=== PATIENT | female | born 1965 | race Caucasian/White ===

== ENCOUNTER → 2017-11-15 | Outpatient (CLI) | payer OTHER ==
[~2017-11-15] MED LIST: ADVIN25/60 INH; ALBU1AER9 INH; CHOL100010 PO; CITA10TA8 PO; IBUP-1450 PO; LVQ750 PO; MULT-884; OMEG10007 PO; PANT40TA PO; PREDNISONE TAPER PO; ROSU20TA PO; diflucan PO
== END | disposition home or self-care (01) ==
LOC: C.LAB1850 15:14
PROVIDERS: ATTEND Obstetrics & Gynecology
DX: Z20.2 Contact with and (suspected) exposure to infections with a predominantly sexual mode of transmission (principal)

== ENCOUNTER → 2017-11-15 | Outpatient (CLI) | payer OTHER | END | disposition home or self-care (01) | LOC: C.PAPS 08:29 | PROVIDERS: ATTEND Obstetrics & Gynecology | DX: Z12.4 Encounter for screening for malignant neoplasm of cervix (principal) ==

== ENCOUNTER → 2017-11-15 | Outpatient (CLI) | payer OTHER ==
--- NOTE | 2017-11-17 07:48 | MAMMOGRAPHY REPORT ---
BILATERAL DIGITAL SCREENING MAMMOGRAM TOMOSYNTHESIS WITH CAD: 11/15/2017 CLINICAL HISTORY: Routine screening. Patient has no complaints. TECHNIQUE: Breast tomosynthesis in addition to standard 2D mammography was performed. Current study was also evaluated with a Computer Aided Detection (CAD) system. COMPARISON: Comparison is made to exams dated: 07/23/2015 mammogram, 04/09/2011 mammogram, 07/21/2009 mammogram - [facility], 11/01/2007, 07/15/2009 mammogram, and 07/21/2009 ultrasound - [facility]. BREAST COMPOSITION: There are scattered areas of fibroglandular density in both breasts. FINDINGS: There is stable asymmetry in the right breast. No suspicious mass, architectural distortio n or cluster of microcalcifications is seen. IMPRESSION: ACR BI-RADS CATEGORY 1: NEGATIVE There is no mammographic evidence of malignancy. A 1 year screening mammogram is recommended. The pa tient will receive written notification of the results. Approximately 10% of breast cancers are not detected with mammography. A negative mammographic report should not delay biopsy if a clinically suggestive mass is present. Aura Aguilar M.D. ay/:11/15/2017 15:16:38 Corporate Consultant: Kacey CACERES([place])([place]), [facility] letter sent: Normal 1/2 BI-RADS Code: ACR BI-RADS Category 1: Negative
== END | disposition home or self-care (01) ==
LOC: C.MAMM 14:01
PROVIDERS: ATTEND Obstetrics & Gynecology
DX: Z12.31 Encounter for screening mammogram for malignant neoplasm of breast (principal)

== ENCOUNTER 2020-09-26 05:44 | Observation (INO) ==
[2020-09-26] MEDS ORDERED: ALBUT/IPRATROP 3MG/0.5MG NEB 3 ML VIAL NEB STA (06:45)
[2020-09-26] MEDS ORDERED: DEXAMETHASONE SOD INJ 10 MG/ML VIAL IV ONE (06:45)
[2020-09-26] MEDS ORDERED: guaiFENesin 600 MG TABCR PO STA (06:45)
[2020-09-26] MEDS ORDERED: ACETAMINOPHEN 1,000 MG/100 ML VIAL IV STA (06:46)
[2020-09-26 06:57] LABS: Basophils # (auto) 0.02 K/uL (0-0.2); Basophils % (auto) 0.3 %; Hematocrit (blood only) 40.8 % (37-47); Hemoglobin 13.6 g/dL (12.0-16.0); Immature Granulocytes # (auto) 0.02 K/uL (0.00-0.02); Immature Granulocytes % (auto) 0.3 %; Lymphocytes # (auto) 0.62 K/uL (1.2-3.4); Lymphocytes % (auto) 9.2 %; Mean Corpuscular Hemoglobin 30.2 pg (25-34); Mean Corpuscular Hgb Conc 33.3 g/dL (32-36); Mean Corpuscular Volume 90.5 fL (80-100); Monocytes # (auto) 0.33 K/uL (0.11-0.59); Monocytes % (auto) 4.9 %; Neutrophils # (auto) 5.78 K/uL (1.4-6.5); Neutrophils % (auto) 85.3 %; Platelet Count 275 K/uL (130-400); RDW Coefficient of Variation 13.6 % (11.5-14.5); RDW Standard Deviation 45.4 fL (36.4-46.3); Red Blood Count 4.51 M/uL (4.2-5.4); White Blood Count 6.77 K/uL (4.8-10.8)
[2020-09-26] MEDS ORDERED: ONDANSETRON INJ 2 MG/ML 2 ML VIAL ONE (06:58)
[2020-09-26] MEDS ORDERED: FAMOTIDINE 20MG/5ML IV PUSH IV ONE (06:59)
--- NOTE | 2020-09-26 07:02 | XRay Report ---
XR chest 1V portable CLINICAL HISTORY: shortness of breath, covid COMPARISON STUDY: Chest radiograph and chest CT September 20, 2020. FINDINGS: Lung volumes are diminished. There is no pneumothorax or pleural effusion. Moderate left ba silar opacity is increased. Right basilar opacity has slightly improved. Cardiomediastinal silhouette is stable. There is no evidence for pulmonary edema. IMPRESSION: 1. Increase in left basilar opacity consistent with an infectious process. 2. Slight improvement in right basilar opacity. 3. Low lung volumes. ACT 112: Negative or not required by law. Electronically signed by: Arnie Nash M.D. 09/26/2020 7:01 AM
[2020-09-26 07:12] LABS: Alanine Aminotransferase 28 U/L (12-78); Albumin Level 2.8 gm/dl (3.4-5.0); Aspartate Aminotransferase 16 U/L (15-37); BUN Creatinine Ratio 21.9 (10-20); Bilirubin Direct 0.1 mg/dl (0-0.2); Blood Urea Nitrogen 20 mg/dl (7-18); Calcium 9.4 mg/dl (8.5-10.1); Carbon Dioxide 22 mmol/L (21-32); Chloride 104 mmol/L (98-107); Creatinine Clr Calc Pharmacy 73.6 ml/min; Est GFR (Non-African American) 72.5; Glucose 110 mg/dl (70-99); Lipase 49 U/L (73-393); Magnesium 1.8 mg/dl (1.8-2.4); Phosphorus 2.5 mg/dl (2.5-4.9); Potassium 3.6 mmol/L (3.5-5.1); Sodium 137 mmol/L (136-145)
[2020-09-26 07:15] LABS: Alkaline Phosphatase 68 U/L (45-117); Bilirubin,Total 0.5 mg/dl (0.2-1); Troponin I < 0.015 ng/ml (0-0.045)
[2020-09-26] MEDS ORDERED: FAMOTIDINE 20MG IV PUSH 20 MG/5 ML SYR IV STA (07:46)
[2020-09-26] MEDS ORDERED: ONDANSETRON INJ 2 MG/ML 2 ML VIAL IV STA (07:46)
[2020-09-26] MEDS ORDERED: SODIUM CHLORIDE 0.9% 1000ML 1,000 ML IV ONE (07:47)
[2020-09-26 08:03] LABS: Influenza A virus by PCR Negative (Neg); Influenza B virus by PCR Negative (Neg); RSV by PCR Negative (Neg); SARS CoV2 RNA(COVID-19) InHosp NEGATIVE (Negative)
--- NOTE | 2020-09-26 08:03 | Emergency Department Note ---
Impression & Plan Pneumonia, Hypoxia, Dehydration ED Provider Note NAME: RAMONA MARI AGE: 54 SEX: F ARRIVES VIA: Walk-In INFORMANT: Patient, ED PROVIDER(S): Nikhil Fowler MD CHIEF COMPLAINT: Shortness of breath. 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 She was treated for CAP with cefdinir and azithromycin but has felt worsening since her last ED visit. She reports some intermittent nausea denies vomiting. She reports loose stools. Denies chest pain, headache, dizziness, symptoms. On arrival the patient is uncomfortable but no acute distress, afebrile with stable vital signs albeit with O2 saturation 90% on room air and mildly dyspneic. She was placed on 3 L nasal cannula with improvement to 97% on room air. She appears clinically dry. She has a scant intermittent wheeze and is diminished at the bases. EKG without overt acute ischemia. CXR with improved right basilar opacity but worsened left basilar opacity. WBC, H/H, platelets wnl. Chemistry without acidosis. BUN 20 with BUN/cr > 20 c/w patient's clinically dry appearance. LFTs and electrolytes unremarkable. Troponin negative/undetectable. Covid-19 PCR negative today. Influenza and RSV PCR also negative. Patient reports marginal improvement after IVF hydration, apap, dexamethasone, Duoneb, Pepcid, Zofran. Given hypoxia/worsening symptoms despite outpatient treatment for CAP she was agreeable with admission. Will defer additional ABX to admitting team. Case was discussed with Dr. Crooks, [facility] hospitalist, who will evaluate the patient for admission. Triage Nursing notes reviewed and agree them. Prior medical records reviewed Vital Signs: reviewed and remarkable for hypoxia. Differential diagnosis: Reactive airway disease, pneumonia, pneumothorax, COPD, CHF, infections, cardiac ischemia, pulmonary embolism, musculoskeletal, gastrointestinal, as well as other pathologies. ER treatment provided: See below. Diagnostics interpreted by me: ECG: NSR, 82 bpm, no ectopy, incomplete RBB, no overt ST elevation or depression. Cardiac Monitoring: An order for continuous cardiac monitoring was placed and demonstrated NSR, 82 bpm, no ectopy. Laboratory studies: See below Imaging studies: XR chest 1V portable CLINICAL HISTORY: shortness of breath, covid COMPARISON STUDY: Chest radiograph and chest CT September 20, 2020. FINDINGS: Lung volumes are diminished. There is no pneumothorax or pleural effusion. Moderate left basilar opacity is increased. Right basilar opacity has slightly improved. Cardiomediastinal silhouette is stable. There is no evidence for pulmonary edema. IMPRESSION: 1. Increase in left basilar opacity consistent with an infectious process. 2. Slight improvement in right basilar opacity. 3. Low lung volumes. ACT 112: Negative or not required by law. Electronically signed by: Arnie Nash M.D. 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 She was treated for CAP with cefdinir and azithromycin but has felt worsening since her last ED visit. She reports some intermittent nausea denies vomiting. She reports loose stools. Denies chest pain, headache, dizziness, symptoms. ROS: See above HPI for pertinent positives & negatives. A total of 10 systems reviewed and were otherwise negative. PAST MEDICAL HISTORY:See Below PAST SURGICAL HISTORY:See Below FAMILY HISTORY:See Below SOCIAL HISTORY:See Below HOME MEDICATIONS:See Below ALLERGIES:See Below VITALS:See Below PHYSICAL EXAMINATION: GENERAL: Awake, alert, fatigued/ill-appearing, in no distress, BMI 33.0 HENT: Normocephalic, atraumatic. Oropharynx with dry mucous membranes and otherwise unremarkable. EYES: Normal conjunctiva. Sclera non-icteric. NECK: Supple. No nuchal rigidity. FROM. No JVD. RESPIRATORY: Scant intermittent wheeze and diminished at the bases. CARDIAC: Regular rate, normal rhythm. Extremities warm and well perfused. Pulses equal. ABDOMEN: Soft, non-distended. No tenderness to palpation. No rebound or guarding. No masses. RECTAL: Deferred. MUSCULOSKELETAL: Chest examination reveals no tenderness. The back is symmetrical on inspection without obvious abnormality. There is no CVA tenderness to palpation. No joint edema. LOWER EXTREMITIES: Calves are equal size bilaterally and non-tender. No edema. No discoloration. NEURO: Normal sensorium. No sensory or motor deficits noted. SKIN: No rash or jaundice noted. Nikhil Fowler MD Past Med/Surg History Medical History GERD with esophagitis Hyperlipidemia Hypertension Obesity Postmenopausal bleeding Surgical History H/O section History of colposcopy History of tubal ligation Family History Grandmother (Maternal) Breast cancer Denies family history of Ovarian cancer Colorectal cancer Social History Smoking Status: Never smoker Preferred Language: [place] Island[place] Communication Ability: Effective Beliefs That Will Affect Care: None marital status: Current Living Situation: Alone Feels Safe at Home: Yes Allergies Allergies Allergy/AdvReac Type Severity Reaction Status Date / Time GRASSES AdvReac Intermediate HAYFEVER Uncoded 09/26/20 06:12 Home Meds Home Medications Medication Instructions Recorded Confirmed citalopram 10 mg tablet 10 mg PO DAILY 04/12/19 09/26/20 omega-3 fatty acids 1,000 mg 1,000 mg PO DAILY 04/12/19 09/26/20 capsule pantoprazole 40 mg tablet,delayed 40 mg PO DAILY 04/12/19 09/26/20 release cholecalciferol (vitamin D3) 50 50 mcg PO DAILY 09/18/20 09/26/20 mcg (2,000 unit) tablet ipratropium 0.5 mg-albuterol 3 mg 3 ml INHALATION DIRECTED PRN 09/18/20 09/26/20 (2.5 mg base)/3 mL nebulization soln multivitamin 1 tab PO DAILY 09/18/20 09/26/20 acetaminophen [Tylenol Extra 1,000 mg PO Q6H PRN 09/26/20 09/26/20 Strength] fluticasone propion-salmeterol 1 inh INHALATION BID 09/26/20 09/26/20 [Advair Diskus] ibuprofen 400 mg PO Q6H PRN 09/26/20 09/26/20 ondansetron HCl [Zofran] 4 mg PO Q8H PRN 09/26/20 09/26/20 prednisone 40 mg PO ONCE 09/26/20 09/26/20 Previous Rx's Medication Instructions Recorded cefdinir 300 mg PO BID #14 cap 09/20/20 Results & Data (ED) Vital Signs Vital Signs - 24 hr 09/26/20 05:49 09/26/20 06:23 09/26/20 07:13 Temperature 37.4 C Temperature Source Temporal Artery Scan Pulse Rate 97 H 78 76 Pulse Rate [Apical] Pulse Rate from SpO2 Sensor 78 77 Respiratory Rate 20 20 25 H Respiratory Effort / Characteristics Blood Pressure 134/93 135/79 139/79 Blood Pressure Mean 106 97 99 Pulse Oximetry 95 98 98 Oxygen Delivery Method Room Air Oxygen Flow Rate 2 2 Sepsis Recent Fever Within 48 Hours No Sepsis New/Unexplained Change in Mental Status No Sepsis Action Taken by Nursing No Action Required 09/26/20 07:30 09/26/20 07:35 09/26/20 08:00 Temperature Temperature Source Pulse Rate 93 H 80 Pulse Rate [Apical] 75 Pulse Rate from SpO2 Sensor 88 81 Respiratory Rate 17 18 22 Respiratory Effort / Characteristics Non-Labored Spontaneous Blood Pressure 130/77 102/61 Blood Pressure Mean 94 74 Pulse Oximetry 95 97 94 Oxygen Delivery Method Nasal Cannula Oxygen Flow Rate 2 3 2 Sepsis Recent Fever Within 48 Hours Sepsis New/Unexplained Change in Mental Status Sepsis Action Taken by Nursing 09/26/20 08:30 09/26/20 08:40 09/26/20 09:00 Temperature 36.6 C Temperature Source Oral Pulse Rate 79 75 Pulse Rate [Apical] Pulse Rate from SpO2 Sensor 80 76 Respiratory Rate 19 20 Respiratory Effort / Characteristics Blood Pressure 114/69 124/78 Blood Pressure Mean 84 93 Pulse Oximetry 96 98 Oxygen Delivery Method Oxygen Flow Rate 2 2 Sepsis Recent Fever Within 48 Hours Sepsis New/Unexplained Change in Mental Status Sepsis Action Taken by Nursing 09/26/20 09:30 09/26/20 10:00 Temperature Temperature Source Pulse Rate 80 75 Pulse Rate [Apical] Pulse Rate from SpO2 Sensor 80 75 Respiratory Rate 21 20 Respiratory Effort / Characteristics Blood Pressure 127/84 125/85 Blood Pressure Mean 98 98 Pulse Oximetry 98 96 Oxygen Delivery Method Oxygen Flow Rate 2 2 Sepsis Recent Fever Within 48 Hours Sepsis New/Unexplained Change in Mental Status Sepsis Action Taken by Nursing Laboratory Data Attestation: I reviewed the patient's lab results. Result diagrams: 09/26/20 Unknown 09/26/20 Unknown Lab Results 09/26/20 09/26/20 09/26/20 Range/Units 06:49 06:49 09:55 C-Reactive Protein 9.47 H (0-0.29) mg/dl Procalcitonin 0.14 (0-0.5) ng/ml Nasal Screen MRSA (PCR) Negative (Negative) Administered Medications Albuterol (Albut/Ipratrop 3mg/0.5mg Neb 3 Ml Vial) 3 ml NEB Q4R DIEGO Stop: 10/26/20 10:59 Last Admin: 09/26/20 18:39 Dose: 3 ml Documented by: [id number] Admin: 09/26/20 15:09 Dose: 3 ml Documented by: [id number] Admin: 09/26/20 13:05 Dose: Not Given Documented by: [id number] Citalopram Hydrobromide (Citalopram 20 Mg Tab) 10 mg PO QAM DIEGO Stop: 10/26/20 13:29 Last Admin: 09/26/20 14:24 Dose: 10 mg Documented by: [id number] Fluticasone/Vilanterol (Fluticasone/Vilanterol 200/25mcg 14 Puffs/Inhaler) 1 puffs INH DAILY DIEGO Stop: 10/26/20 20:59 Last Admin: 09/26/20 19:46 Dose: 1 puffs Documented by: [id number] Methylprednisolone 40 mg/ (Syringe) 0.64 mls @ 1.5 mls/min IV BID DIEGO Stop: 10/26/20 20:59 Last Admin: 09/26/20 19:46 Dose: 1.5 mls/min Documented by: [id number] Melatonin (Melatonin 3 Mg Tab) 3 mg PO HS PRN PRN Reason: Sleep Stop: 10/26/20 13:04 Last Admin: 09/26/20 19:45 Dose: 1.5 mg Documented by: [id number] Pantoprazole Sodium (Pantoprazole 40 Mg Tab) 40 mg PO QAM DIEGO Stop: 10/26/20 13:29 Last Admin: 09/26/20 14:24 Dose: 40 mg Documented by: [id number] Discontinued Medications Albuterol (Albut/Ipratrop 3mg/0.5mg Neb 3 Ml Vial) 3 ml NEB NOW STA Stop: 09/26/20 06:46 Last Admin: 09/26/20 07:34 Dose: 3 ml Documented by: [id number] Dexamethasone (Dexamethasone Sod Inj 10 Mg/Ml Vial) 6 mg IV NOW ONE Stop: 09/26/20 06:46 Last Admin: 09/26/20 07:05 Dose: 6 mg Documented by: [id number] Famotidine (Famotidine 20mg/5ml Iv Push) Confirm Administered Dose 20 mg IV .STK-MED ONE Stop: 09/26/20 07:00 Last Admin: 09/26/20 07:05 Dose: 20 mg Documented by: [id number] Guaifenesin (Guaifenesin 600 Mg Tabcr) 600 mg PO NOW STA Stop: 09/26/20 06:46 Last Admin: 09/26/20 07:05 Dose: 600 mg Documented by: [id number] Acetaminophen (Ofirmev) 1,000 mg in 100 mls @ 400 mls/hr IV NOW STA Stop: 09/26/20 07:00 Last Infusion: 09/26/20 07:43 Dose: 0 mls/hr Documented by: [id number] Admin: 09/26/20 07:05 Dose: 400 mls/hr Documented by: [id number] Famotidine (Pepcid 20mg Iv Push) 20 mg in 5 mls @ 2.5 mls/min IV NOW STA Stop: 09/26/20 07:47 Last Admin: 09/26/20 07:48 Dose: Not Given Documented by: [id number] Sodium Chloride (Nss 1000ml) 1,000 mls @ 999 mls/hr IV .Q1H1M ONE Stop: 09/26/20 08:47 Last Infusion: 09/26/20 09:49 Dose: 0 mls/hr Documented by: [id number] Admin: 09/26/20 08:36 Dose: 999 mls/hr Documented by: [id number] Methylprednisolone (Methylprednisolone 40 Mg/Ml Vial) 40 mg IV BID DIEGO Stop: 10/26/20 10:44 Last Admin: 09/26/20 11:53 Dose: 40 mg Documented by: [id number] Ondansetron HCl (Ondansetron Inj 2 Mg/Ml 2 Ml Vial) Confirm Administered Dose 4 mg .ROUTE .STK-MED ONE Stop: 09/26/20 06:59 Last Admin: 09/26/20 07:05 Dose: 4 mg Documented by: [id number] Ondansetron HCl (Ondansetron Inj 2 Mg/Ml 2 Ml Vial) 4 mg IV NOW STA Stop: 09/26/20 07:47 Last Admin: 09/26/20 07:48 Dose: Not Given Documented by: [id number] Discharge Plan Visit Data Chief Complaint: Cough Stated Complaint: coughing ED Provider: Nikhil Fowler Discharge Problem: Pneumonia, Hypoxia, Dehydration Patient Disposition: Admitted As Inpatient Discharge Instructions Interventions: ED Discharge Assessment Last Done: 09/26/20 12:09 Discharge Problem: Pneumonia Qualifiers: Pneumonia type: due to unspecified organism Laterality: bilateral Lung location: lower lobe of lung Qualified Code(s): J18.9 - Pneumonia, unspecified organism
--- NOTE | 2020-09-26 10:15 | History & Physical Report ---
Date of Service September 26, 2020 Assessment & Plan (1) Asthma exacerbation: Katlin Miller is a 54 yo female with h/o asthma and GERD who presented to [facility] ED on 09/26/2020 for worsening shortness of breath, wheezing and cough x5 days - left basilar opacity on CXR. Pneumonia - fever/cough/SOB, crackles on exam, LLL PNA on imaging - MRSA nares negative, COVID PCR negative x1 and antigen negative x2, RSV/Flu negative - given recent RLL PNA unresponsive to abx, as well as elevated CRP but Procalcitonin WNL, suspect viral PNA - patient is hemodynamically stable w/o SIRS criteria - will hold on further abx for now - trend CBC daily Asthma Exacerbation - wheezing/cough/SOB following respiratory infection, sx improved after Decadron IV x1 - suspect asthma exacerbation 09/23 above - Solu-Medrol 40mg IV BID - wean as tolerated - scheduled/PRN Duonebs - continue home Advair inhaler BID GERD - continue Protonix 40mg PO daily Depression - continue Citalopram 10mg PO QAM FEN/GI: Regular DVT Prophylaxis: SCDs Code Status: Full code Disposition: med/surg (2) Pneumonia: (3) GERD (gastroesophageal reflux disease): History of Present Illness Chief Complaint: cough, shortness of breath Primary Care Provider: Margarita Hilton MD Katlin Miller is a 54 yo female with h/o asthma and GERD who presented to [facility] ED on 09/26/2020 for worsening shortness of breath, wheezing and cough x5 days. Patient was recently in the ED on 09/20/2020 for fever 103-104F, chills, generalized body aches, cough - diagnosed with RLL PNA and discharged with Azithromycin x5 days and Cefdinir x7 days; of note COVID-19 PCR/Rapid Antigen were negative at that time. Patient reports that fever/chills resolved after the ED visit but she has had worsening productive cough, pink-tinged sputum, wheezing, and shortness of breath despite taking antibiotics as prescribed. Has associated decreased appetite as well. Also reports mild diarrhea 1-2 times per day since starting antibiotics as well as nausea that she thinks is related to chronic GERD. PMHx: Asthma - prescribed Advair inhaler and Duonebs to use "only when she is sick" - does not use either inhaler regularly but denies wheezing/dyspnea/cough when she is not sick GERD - prescribed Protonix 40mg PO daily but does not take this - has daily nausea/heartburn Social Hx: Denies past or current tobacco use/smoking, denies alcohol use, denies other drug use. Lives alone in a one-story apartment and is proficient in all ADLs/iADLs. In the ED, the patient was afebrile but dyspneic with SpO2 90% on RA, no leukocytosis, CXR showing increase in left basilar opacity and slight improvement in right basilar opacity (compared to 09/20). Patient was started on supplemental O2 (3L NC) and given 1L NSS bolus as well as Duonebs/Decadron x1. Allergies Allergy/AdvReac Type Severity Reaction Status Date / Time GRASSES AdvReac Intermediate HAYFEVER Uncoded 09/26/20 06:12 Home Medications Medication Instructions Recorded Confirmed Type citalopram 10 mg tablet 10 mg PO DAILY 04/12/19 09/26/20 History omega-3 fatty acids 1,000 mg 1,000 mg PO DAILY 04/12/19 09/26/20 History capsule pantoprazole 40 mg tablet,delayed 40 mg PO DAILY 04/12/19 09/26/20 History release cholecalciferol (vitamin D3) 50 50 mcg PO DAILY 09/18/20 09/26/20 History mcg (2,000 unit) tablet ipratropium 0.5 mg-albuterol 3 mg 3 ml INHALATION DIRECTED PRN 09/18/20 09/26/20 History (2.5 mg base)/3 mL nebulization soln multivitamin 1 tab PO DAILY 09/18/20 09/26/20 History cefdinir 300 mg PO BID #14 cap 09/20/20 09/26/20 Rx acetaminophen [Tylenol Extra 1,000 mg PO Q6H PRN 09/26/20 09/26/20 History Strength] fluticasone propion-salmeterol 1 inh INHALATION BID 09/26/20 09/26/20 History [Advair Diskus] ibuprofen 400 mg PO Q6H PRN 09/26/20 09/26/20 History ondansetron HCl [Zofran] 4 mg PO Q8H PRN 09/26/20 09/26/20 History prednisone 40 mg PO ONCE 09/26/20 09/26/20 History Past Med/Surg History Medical History GERD with esophagitis Hyperlipidemia Hypertension Obesity Postmenopausal bleeding Surgical History H/O section History of colposcopy History of tubal ligation Family History Grandmother (Maternal) Breast cancer Denies family history of Ovarian cancer Colorectal cancer Social History Smoking Status: Never smoker Preferred Language: Argentine Communication Ability: Effective Beliefs That Will Affect Care: None marital status: Current Living Situation: Alone Feels Safe at Home: Yes Review of Systems Constitutional: + fever, + chills, + body aches and + fatigue Eyes: no worsening vision Ear, Nose, Mouth, Throat: no hearing loss Respiratory: + cough, + dyspnea, + hemoptysis, + sputum production and + wheezing Cardiovascular: no chest pain, no palpitations and no edema Gastrointestinal: + nausea, + constipation and + diarrhea/loose stools; no vomiting and no blood in stools Genitourinary: no dysuria, no urinary frequency and no urinary urgency Neurologic: no syncope Hematologic / Lymphatic: no easy bleeding and no easy bruising Physical Exam Constitutional: WD/WN, vitals as above Respiratory: normal respiratory effort; no respiratory distress Auscultation: + crackles (inspiratory crackles in L base, faint crackles in R base); no wheezes Cardiovascular: RRR, no murmur, no edema Gastrointestinal (Abdomen): normal bowel sounds, soft, nontender, no hepatosplenomegaly Musculoskeletal: no cyanosis or clubbing, extremities motor strength 5/5 Skin: no rashes, warm and dry Psychiatric: A+Ox3, euthymic affect Results & Data Results & Data ([facility]) Vital Signs (Past 12 Hours) Vital Signs Temp Pulse Pulse Resp BP Pulse Ox 09/26/20 08:40 36.6 C 09/26/20 08:30 79 19 114/69 96 09/26/20 08:00 80 22 102/61 94 09/26/20 07:35 75 18 97 09/26/20 07:30 93 H 17 130/77 95 09/26/20 07:13 76 25 H 139/79 98 09/26/20 06:23 78 20 135/79 98 09/26/20 05:49 37.4 C 97 H 20 134/93 95 Code Status & VTE Plan Code Status Full code - discussed with patient VTE Prophylaxis Plan VTE Prophylaxis will be ordered: Yes Supervising Physician Co-Signing Physician Notes I personally examined the patient and verified all chatman points of history and exam, discussed case, and agree with decision making with Dr Sarmiento. Cough shortness of breath wheezing. Was on cefdinir and Zithromax, did not really get any better. No new complaints, just not improving. Vitals noted, in general she is awake alert pleasant fatigued appearing but in no distress. HEENT normocephalic atraumatic mucous membranes moist. Lungs are clear except for rales base to mid left lung field no rhonchi no wheezes good effort, of note she is already had steroids and a breathing treatment for examiner. Skin shows no rashes no pallor or icterus neuro shows no focal deficits. Community-acquired pneumonia with acute hypoxic respiratory failurefailed Zithromax and cefdinir. Pneumonia last week was predominantly right lower now it appears to be left sided. She has MRSA nares negative her pro-Oleksandr is low and her CRP is 9. I strongly wonder if this is not a viral process. 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 Also possible that she has other resistant bacteria such as a resistant Haemophilus or less likely resistant strep, but her inflammatory markers would bleed otherwise. We will treat the asthma follow her closely and hold off on further antibiotics for now, following serial exams serial inflammatory markers and her overall clinical picture. Otherwise as above. Resident Activity Tracking Resident Involvement: Resident Care Provided Care Provided: Adult Hospital Medicine
[2020-09-26] MEDS ORDERED: ALBUT/IPRATROP 3MG/0.5MG NEB 3 ML VIAL NEB PRN (12:52)
[2020-09-26] MEDS ORDERED: ACETAMINOPHEN 325 MG TAB PO PRN (13:04)
[2020-09-26] MEDS: ALBUT/IPRATROP 3MG/0.5MG NEB 3 ML VIAL NEB SCH ×3 (13:05→18:39)
[2020-09-26] MEDS ORDERED: MELATONIN 3 MG TAB PO PRN (13:05)
[2020-09-26] MEDS: PANTOprazole 40 MG TAB PO SCH (14:24)
[2020-09-26] MEDS: CITALOPRAM 20 MG TAB PO SCH (14:24)
--- NOTE | 2020-09-26 16:41 | Billing Data ---
Date of Service September 26, 2020 Coding Level of Care Code 87424 Initial Inpt Care Lvl 3
[2020-09-26] MEDS: methylPREDNISolone 40 MG in SYRINGE 0 ML IV SCH (19:46)
[2020-09-26] MEDS: FLUTICASONE/VILANTEROL 200/25MCG 14 PUFFS/INHALER INH SCH (19:46)
[2020-09-26] MEDS ORDERED: methylPREDNISolone 40 MG in SYRINGE 0 ML IV SCH (21:00)
[2020-09-27] MEDS: ALBUT/IPRATROP 3MG/0.5MG NEB 3 ML VIAL NEB SCH ×7 (00:10→23:27)
[2020-09-27] MEDS: ONDANSETRON INJ 2 MG/ML 2 ML VIAL IV PRN ×2 (00:18→06:37)
[2020-09-27 07:09] LABS: Hematocrit (blood only) 36.4 % (37-47); Hemoglobin 12.1 g/dL (12.0-16.0); Mean Corpuscular Hemoglobin 30.3 pg (25-34); Mean Corpuscular Hgb Conc 33.2 g/dL (32-36); Mean Corpuscular Volume 91.2 fL (80-100); Mean Platelet Volume 9.7 fL (7.4-10.4); Platelet Count 307 K/uL (130-400); Red Blood Count 3.99 M/uL (4.2-5.4); White Blood Count 6.77 K/uL (4.8-10.8)
[2020-09-27 07:29] LABS: Basophils # (auto) 0.02 K/uL (0-0.2); Basophils % (auto) 0.3 %; Immature Granulocytes # (auto) 0.03 K/uL (0.00-0.02); Immature Granulocytes % (auto) 0.4 %; Lymphocytes # (auto) 0.92 K/uL (1.2-3.4); Lymphocytes % (auto) 13.6 %; Monocytes # (auto) 0.55 K/uL (0.11-0.59); Monocytes % (auto) 8.1 %; Neutrophils # (auto) 5.25 K/uL (1.4-6.5); Neutrophils % (auto) 77.6 %
[2020-09-27 07:37] LABS: BUN Creatinine Ratio 17.8 (10-20); C Reactive Protein 3.26 mg/dl (0-0.29); Calcium 9.3 mg/dl (8.5-10.1); Creatinine Clr Calc Pharmacy 81.8 ml/min; Est GFR (African American) 95.4; Est GFR (Non-African American) 82.3; Potassium 3.7 mmol/L (3.5-5.1)
[2020-09-27] MEDS: FLUTICASONE/VILANTEROL 200/25MCG 14 PUFFS/INHALER INH SCH (08:34)
[2020-09-27] MEDS: CITALOPRAM 20 MG TAB PO SCH (08:34)
[2020-09-27] MEDS: PANTOprazole 40 MG TAB PO SCH (08:35)
[2020-09-27] MEDS: methylPREDNISolone 40 MG in SYRINGE 0 ML IV SCH ×2 (08:35→21:30)
--- NOTE | 2020-09-27 19:08 | Hospitalist Progress Note ---
Date of Service September 27, 2020 Assessment & Plan (1) Asthma exacerbation: On the basis of what appears to be a viral pneumonia. She seems to be slowly improving with this. Continue supplemental oxygen for hypoxic respiratory failure, continue steroids and nebulizers. (2) Pneumonia: Given her low pro-Oleksandr and downtrending CRP, as well as failure of Zithromax cefdinir, as well as negative MRSA nares, this appears most consistent with a viral pneumonia. Continue supportive care, continue to hold off on antibiotics. Serial exams, serial labs. Consider reimaging tomorrow based on how she is feeling, but if she is showing nice improvement this might not be necessary, if she is worsening may need to consider CT. If she were to worsen/have a rise in inflammatory markers/have fevers again, would need to consider MRSA or resistant gram-negative's anyway with a regimen such as doxycycline and Cipro, but at this point it appears it will not be necessary. (3) GERD (gastroesophageal reflux disease): She also notes significant morning nausea, now worse than normal, but ongoing for quite a long time. I suspect this is an ongoing postnasal drip issue. For now while she is acutely ill, we will use Phenergan and Nasacort at bedtime, once she is improving we will downgrade to just the Nasacort, and once that improves may be should be able to do just nasal irrigation once a day and the nasal steroid as needed. Admission and Anticipated Discharge Date Admission Date: September 26, 2020 Subjective May be feeling a little bit better. Is coughing and is bringing up discolored sputum, still feels dyspneic and dyspneic on exertion and still requiring oxygen but probably feels like she is breathing a little bit better. Notes the steroids are helping. No other new complaints. Pleased with care and progress. Review of Systems Review of Systems: All systems reviewed & are unremarkable except as noted in HPI & below Physical Exam Physical Exam: General she is awake alert oriented x3 pleasant fatigued appearing but no distress. HEENT normocephalic atraumatic mucous membranes moist. Lungs show left mid base Rales count is similar to yesterday may be slightly less pronounced with a little better air entry. She does have diminished breath sounds base right that then clear into a little bit of a faint rales likely consistent with atelectasis. Neuro shows no focal deficits. Skin shows no rashes no pallor or icterus. Results & Data Results & Data ([facility]) Vital Signs (Past 12 Hours) Vital Signs Temp Pulse Resp BP Pulse Ox 09/27/20 16:01 97.9 F 77 16 111/67 93 09/27/20 15:28 75 22 88 L 09/27/20 11:30 75 18 91 09/27/20 08:16 78 18 93 09/27/20 07:53 98.1 F 72 16 112/65 94 PG Care Time/CCT Total # of Minutes Spent Total Time Spent with Patient: Total time spent is greater than 50% in coordination of care (as documented) at patient's floor/unit and/or counseling patient: Coding Level of Care Code 64225 Subseq Hosp Care Lvl 3 Diagnoses Asthma exacerbation J45.901 Pneumonia J18.9 Laterality: bilateral Lung location: lower lobe of lung Pneumonia type: due to unspecified organism GERD (gastroesophageal reflux disease) K21.9 (1) Pneumonia Laterality: bilateral Lung location: lower lobe of lung Pneumonia type: due to unspecified organism Qualified Code(s): J18.9 - Pneumonia, unspecified organism
[2020-09-27] MEDS ORDERED: TRIAMCINOLONE ACET NASAL SPRAY 10.8ML BTL NAE SCH (21:00)
[2020-09-27] MEDS ORDERED: PROMETHAZINE HCL 25 MG/20 ML UDP PO SCH (21:00)
[2020-09-28] MEDS: ALBUT/IPRATROP 3MG/0.5MG NEB 3 ML VIAL NEB SCH ×3 (03:41→11:31)
[2020-09-28] MEDS: ONDANSETRON INJ 2 MG/ML 2 ML VIAL IV PRN (06:00)
[2020-09-28 06:14] LABS: Hematocrit (blood only) 35.5 % (37-47); Hemoglobin 11.7 g/dL (12.0-16.0); Mean Corpuscular Hemoglobin 30.4 pg (25-34); Mean Corpuscular Volume 92.2 fL (80-100); Mean Platelet Volume 9.8 fL (7.4-10.4); Platelet Count 344 K/uL (130-400); RDW Coefficient of Variation 14.2 % (11.5-14.5); Red Blood Count 3.85 M/uL (4.2-5.4); White Blood Count 5.91 K/uL (4.8-10.8)
[2020-09-28 06:38] LABS: BUN Creatinine Ratio 15.1 (10-20); C Reactive Protein 1.18 mg/dl (0-0.29); Calcium 9.2 mg/dl (8.5-10.1); Creatinine Clr Calc Pharmacy 78.9 ml/min; Est GFR (African American) 91.3; Est GFR (Non-African American) 78.8; Potassium 3.9 mmol/L (3.5-5.1)
[2020-09-28 06:48] LABS: Basophils # (auto) 0.01 K/uL (0-0.2); Basophils % (auto) 0.2 %; Immature Granulocytes # (auto) 0.05 K/uL (0.00-0.02); Immature Granulocytes % (auto) 0.8 %; Lymphocytes # (auto) 0.77 K/uL (1.2-3.4); Monocytes # (auto) 0.43 K/uL (0.11-0.59); Monocytes % (auto) 7.3 %; Neutrophils # (auto) 4.65 K/uL (1.4-6.5); Neutrophils % (auto) 78.7 %
[2020-09-28] MEDS: FLUTICASONE/VILANTEROL 200/25MCG 14 PUFFS/INHALER INH SCH (08:24)
[2020-09-28] MEDS: CITALOPRAM 20 MG TAB PO SCH (08:25)
[2020-09-28] MEDS: methylPREDNISolone 40 MG in SYRINGE 0 ML IV SCH (08:26)
[2020-09-28] MEDS: PANTOprazole 40 MG TAB PO SCH (08:26)
[2020-09-28] MEDS ORDERED: methylPREDNISolone 40 MG in SYRINGE 0 ML IV ONE (13:15)
--- NOTE | 2020-09-28 14:10 | Discharge Summary ---
Date of Service September 28, 2020 Admission HPI Per Admitting Provider Katlin Miller is a 54 yo female with h/o asthma and GERD who presented to [facility] ED on 09/26/2020 for worsening shortness of breath, wheezing and cough x5 days. Patient was recently in the ED on 09/20/2020 for fever 103-104F, chills, generalized body aches, cough - diagnosed with RLL PNA and discharged with Azithromycin x5 days and Cefdinir x7 days; of note COVID-19 PCR/Rapid Antigen were negative at that time. Patient reports that fever/chills resolved after the ED visit but she has had worsening productive cough, pink-tinged sputum, wheezing, and shortness of breath despite taking antibiotics as prescribed. Has associated decreased appetite as well. Also reports mild diarrhea 1-2 times per day since starting antibiotics as well as nausea that she thinks is related to chronic GERD. PMHx: Asthma - prescribed Advair inhaler and Duonebs to use "only when she is sick" - does not use either inhaler regularly but denies wheezing/dyspnea/cough when she is not sick GERD - prescribed Protonix 40mg PO daily but does not take this - has daily nausea/heartburn Social Hx: Denies past or current tobacco use/smoking, denies alcohol use, denies other drug use. Lives alone in a one-story apartment and is proficient in all ADLs/iADLs. In the ED, the patient was afebrile but dyspneic with SpO2 90% on RA, no leukocytosis, CXR showing increase in left basilar opacity and slight improvement in right basilar opacity (compared to 09/20). Patient was started on supplemental O2 (3L NC) and given 1L NSS bolus as well as Duonebs/Decadron x1. Admission Exam Per Admitting Provider Constitutional: WD/WN, vitals as above Respiratory: normal respiratory effort; no respiratory distress Auscultation: + crackles (inspiratory crackles in L base, faint crackles in R base); no wheezes Cardiovascular: RRR, no murmur, no edema Gastrointestinal (Abdomen): normal bowel sounds, soft, nontender, no hepatosplenomegaly Musculoskeletal: no cyanosis or clubbing, extremities motor strength 5/5 Skin: no rashes, warm and dry Psychiatric: A+Ox3, euthymic affect Principal Diagnosis Asthma Exacerbation Pneumonia Discharge Exam General: A&Ox3. NAD. Cooperative. HEENT: Atraumatic, normocephalic. Pulm: CTAB A&P. -wheezes, -rales, -rhonchi. Symmetrical chest rise. No increase work of breathing. No respiratory distress. Cardiac: RRR, -mrg. Radial pulses intact and symmetrical. Abdominal: soft, non-tender, non-distended, BS x 4 Discharge Data Allergies Allergy/AdvReac Type Severity Reaction Status Date / Time GRASSES AdvReac Intermediate HAYFEVER Uncoded 09/26/20 06:12 Consultations 09/26/20 08:44 ED Decision to Admit Stat Hospital Course (1) Asthma exacerbation: Katlin Miller is a 54 yo female with h/o asthma and GERD who presented to [facility] ED on 09/26/2020 for worsening shortness of breath, wheezing and cough x5 days - left basilar opacity on CXR. Pneumonia - fever/cough/SOB, crackles on exam, LLL PNA on imaging, MRSA/COVID/RSV/Flu negative --> given recent RLL PNA unresponsive to abx, as well as elevated CRP but Procalcitonin WNL, suspect viral PNA - resolution of SOB and improved respiratory exam while hospitalized, without abx - f/u with PCP as outpatient Asthma Exacerbation - wheezing/cough/SOB following respiratory infection, sx improved after Decadron IV x1 - suspect asthma exacerbation 2/2 above - improved with Solu-Medrol 40mg IV BID and scheduled/PRN Duonebs - 12-day Prednisone taper on discharge (60/50/40/30/20/10, 2 days each) - continue home Advair inhaler BID and home Albuterol nebs PRN, until symptoms resolve GERD - continue Protonix 40mg PO daily Depression - continue Citalopram 10mg PO QAM Total Time Total Time Spent Total Time Spent (In Minutes): <30 minutes Total Time Includes: Examination of the Patient, Discharge Planning and Medica tion Reconciliation Discharge Plan Discharge Items Patient Disposition: Home - Self-Care Reason For Visit: PNA,ASTHMA EXACERBATION Discharge Diagnosis: Asthma Exacerbation Pneumonia Activity: Per Instructions section Non-emergency contact: Primary Care Provider Call non-emergency contact if: you have any medication questions, your symptoms worsen and you have a fever Follow-up/Referrals: Margarita Hilton MD [Primary Care Provider] - Diet: Regular Addtl Attending Provider Instructions: You were admitted to [facility] on 09/26/2020 with an asthma exacerbation which was most likely due to a viral pneumonia. You were started on IV Solu-Medrol (steroids) as well as scheduled Duonebs, and you did very well on these medications. You will be discharged in improved stable condition on 09/28/2020. After discharge you should start taking an oral Prednisone taper for 12 days: starting tomorrow, you should take 6 pills (60mg) per day for 2 days, then 5 pills (50mg) per day for 2 days, then 4 pills (40mg) per days for 2 days, then 3 pills (30mg) per day for 2 days, then 2 pills (20mg) per day for 2 days, then 1 pill (10mg) per day for 2 days. You should also continue to take your home Duonebs and Albuterol nebs as needed. You should continue to take all of your other scheduled home medications, and you should follow up with your PCP. We hope you continue to feel better. It was a pleasure to help provide your care while you were hospitalized. Pending Studies at Discharge: No Stand-Alone Forms: [facility], Work/School Release (Inpt), Smoking Cessation Medications and DC Order Prescriptions: New prednisone 10 mg tablet 10 mg PO DAILY 12 Days Qty: 12 RF: 0 prednisone 10 mg tablet 10 mg PO DAILY Qty: 42 RF: 0 Continued cholecalciferol (vitamin D3) 50 mcg (2,000 unit) tablet 50 mcg PO DAILY RF: 0 ipratropium-albuterol 0.5 mg-3 mg(2.5 mg base)/3 mL solution for nebulization 3 ml inhalation DIRECTED PRN (Reason: Shortness Of Breath) RF: 0 multivitamin Tablet 1 tab PO DAILY RF: 0 citalopram [Celexa] 10 mg tablet 10 mg PO DAILY RF: 0 omega-3 fatty acids [Fish Oil Concentrate] 1,000 mg capsule 1,000 mg PO DAILY RF: 0 pantoprazole [Protonix] 40 mg tablet,delayed release (DR/EC) 40 mg PO DAILY RF: 0 fluticasone propion-salmeterol [Advair Diskus] 250-50 mcg/dose Blister With Device 1 inh INHALATION BID RF: 0 ondansetron HCl [Zofran] 4 mg Tablet 4 mg PO Q8H PRN (Reason: NAUSEA/VOMITING) RF: 0 acetaminophen [Tylenol Extra Strength] 500 mg Tablet 1,000 mg PO Q6H PRN (Reason: FEVER/PAIN) RF: 0 ibuprofen 200 mg Tablet 400 mg PO Q6H PRN (Reason: FEVER/PAIN) RF: 0 Discontinued cefdinir 300 mg capsule 300 mg PO BID Qty: 14 RF: 0 prednisone 20 mg Tablet 40 mg PO ONCE RF: 0 Discharge Orders: Discharge Order (Routine); Ordered 09/28/20 Ordered By: Esteban Ordonez/Other Patient Handouts: Preventing Pneumonia Admission Data Admit Date/Time: 09/26/20 10:46 Attending Provider: Johnny Cardenas Admit Provider: Esteban Sarmiento Primary Care Provider: Margarita Hilton Other Providers: Robert Crooks Other Interventions: Discharge Summary Assessment (RN) Last Done: 09/28/20 14:14 Supervising Physician Co-Signing Physician Notes I personally examined the patient and verified all chatman points of history and exam, discussed case, and agree with decision making with Dr Sarmiento. Overall breathing is feeling better. Off oxygen, feels up to going home. Vitals noted, in general she is awake alert pleasant fatigued appearing but in no distress. HEENT normocephalic atraumatic mucous membranes moist. Breathing unlabored no accessory muscle use good effort, no conversational dyspnea. Skin shows no rashes no pallor or icterus neuro shows no focal deficits. Community-acquired pneumonia with acute hypoxic respiratory failurefailed Zithromax and cefdinir. Pneumonia last week was predominantly right lower now it appears to be left sided. She has MRSA nares negative her pro-Oleksandr is low and her CRP is rather low as well. We opted to treat as there was a viral pneumonia with asthma exacerbation rather than something resistant to the Zithromax and cefdinir, she improved nicely. Her pro-Oleksandr and CRP continue to trend down and her clinical picture improved day today. She is now stable for home. Outpatient steroid taper and nebulizer/inhalers. Outpatient follow-up. Otherwise as above. Resident Activity Tracking Resident Involvement: Resident Care Provided Care Provided: Adult [facility]
--- NOTE | 2020-09-28 18:32 | Billing Data ---
Date of Service September 28, 2020 Coding Level of Care Code D/C Day Management <30 mins
--- NOTE | 2020-09-29 08:25 | Electrocardiogram Report ---
Test Reason : Blood Pressure : / mmHG Vent. Rate : 082 BPM Atrial Rate : 082 BPM P-R Int : 128 ms QRS Dur : 092 ms QT Int : 370 ms P-R-T Axes : 031 -13 025 degrees QTc Int : 432 ms Normal sinus rhythm Incomplete right bundle branch block Poor R wave progression, consider anterior OR vs. lead placement vs. LVH Abnormal ECG When compared with ECG of 20-SEP-2020 12:47, No significant change Confirmed by Afshin Olguin ([id number]) on 09/29/2020 8:25:22 AM Referred By: REFERRED SELF Confirmed By:Afshin Olguin
== END 2020-09-28 15:04 | disposition home or self-care (01) ==
LOC: ED 05:44 → 3W 10:46 → INTOOBSV 10:46 → 3W 12:09